=== PATIENT | female | born 1980 | race Caucasian/White ===

== ENCOUNTER → 2016-12-15 | Outpatient (CLI) | payer OTHER ==
[~2016-12-15] MED LIST: LUNESTA3 MG PO
== END ==
LOC: MC.RAD 11:00
DX: N63 Unspecified lump in breast (principal)

== ENCOUNTER 2022-11-25 13:12 | Emergency (ER) | payer SELFPAY ==
[~2022-11-25] VITALS: Ht 167.6 cm; Wt 70.5 kg
[2022-11-25 13:25] VITALS: TEMP 98.5
[2022-11-25] MEDS ORDERED: DOXYCYCLINE 10100 MG PO (13:54)
[2022-11-25 14:00] VITALS: BP 106/80; PULSE 78
== END 2022-11-25 14:00 | disposition home or self-care (01) ==
LOC: COL.ER 13:12
DX: S81.832D Puncture wound without foreign body, left lower leg, subsequent encounter (principal); L97.929 Non-pressure chronic ulcer of unspecified part of left lower leg with unspecified severity; F17.200 Nicotine dependence, unspecified, uncomplicated; Z88.0 Allergy status to penicillin; Z88.2 Allergy status to sulfonamides; W20.8XXD Other cause of strike by thrown, projected or falling object, subsequent encounter; Y99.0 Civilian activity done for income or pay